=== PATIENT | male | born 1975 | race Two or more races ===

== ENCOUNTER → 2019-06-20 | Outpatient (CLI) | payer OTHER ==
[~2019-06-20] MED LIST: IOHEXOL 240 MG/ML 50ML VIAL. ONE; IOHEXOL 300 MG/ML 75 ML VIAL. IV ONE
--- NOTE | 2019-06-20 13:58 | RAD ---
EXAM: Abdomen and pelvis CT with intravenous contrast. HISTORY: Umbilical hernia. TECHNIQUE: Computed tomographic images of the abdomen and pelvis were obtained following the administration of intravenous contrast. Multiplanar reformatting was performed. *One or more of the following individualized dose reduction techniques were utilized for this examination: 1. Automated exposure control. 2. Adjustment of the mA and/or kV according to patient size. 3. Use of iterative reconstruction technique. COMPARISON: None. FINDINGS: Evaluation of the lower thorax demonstrates posterior dependent atelectasis. There is lingular and right middle lobe atelectasis or scarring. The heart is normal in size. There is hepatic steatosis. There is an 11 mm enhancing are relatively hyperdense lesion within the left hepatic lobe. There is focal fatty sparing along the gallbladder fossa. The gallbladder, pancreas, spleen, and adrenal glands are unremarkable. There are accessory renal arteries, a normal variant. No suspicious renal lesion is seen. There is no hydronephrosis. There is no appendicitis or bowel obstruction. There is no abnormal bowel wall thickening. There is a small fat-containing umbilical hernia to the left of midline. The hernia sac measures approximately 3.8 cm. There is slight stranding within the herniated fat and ventral peritoneal fat. There are degenerative changes involving the spine. This is predominantly at the lumbosacral junction. There is no acute osseous finding. IMPRESSION: 1. Small fat-containing umbilical hernia to the left of midline. This measures approximately 3.8 cm in maximum dimension. There is stranding within the herniated fat and adjacent ventral peritoneal fat, a finding which can be seen with fat ischemia. 2. Hepatic steatosis. There is an 11 mm hyperdense or enhancing lesion within the left hepatic lobe. This may be due to focal fatty sparing or a hemangioma. This may be too small to characterize sonographically. A liver protocol MRI may be useful if there are risk factors for neoplasm. Electronically signed by: Nena Patiño MD (06/20/2019 1:56 PM) [facility] [place]
== END | disposition home or self-care (01) ==
LOC: EEVIPCON 12:02 → CT 12:02
PROVIDERS: ATTEND Preventive Medicine Occupational Medicine
DX: K42.9 Umbilical hernia without obstruction or gangrene (principal); K76.0 Fatty (change of) liver, not elsewhere classified; K76.89 Other specified diseases of liver; J98.11 Atelectasis; M47.817 Spondylosis without myelopathy or radiculopathy, lumbosacral region
CPT/HCPCS: 74177; Q9967